=== PATIENT | female | born 1980 | race Caucasian/White ===

== ENCOUNTER 2025-02-16 08:07 | Day surgery (SDC) | payer BC ==
[2025-02-12 08:47] VITALS: BMI 33.2
[2025-02-16] MEDS ORDERED: PROPOFOL 60 ML ONE (08:36)
[2025-02-16] MEDS ORDERED: Lidocaine 1% PF 5 ML VIAL ONE ×2 (08:52→09:13)
[2025-02-16] MEDS ORDERED: Ondansetron PF 4 MG/2 ML Vial ONE (09:13)
== END 2025-02-16 10:05 | disposition home or self-care (01) ==
LOC: CSHSDC 08:07
PROVIDERS: ATTEND Surgery
PROC: 0DJD8ZZ Inspection of Lower Intestinal Tract, Via Natural or Artificial Opening Endoscopic (ICD-10-PCS; principal; 2025-02-16)
DX: R19.4 Change in bowel habit (principal); I10 Essential (primary) hypertension; E78.5 Hyperlipidemia, unspecified; F41.8 Other specified anxiety disorders; G43.909 Migraine, unspecified, not intractable, without status migrainosus; Z90.49 Acquired absence of other specified parts of digestive tract; Z79.899 Other long term (current) drug therapy
CPT/HCPCS: J2405; J2704